=== PATIENT | female | born 1970 | race Caucasian/White ===

== ENCOUNTER 2023-08-27 06:29 | Outpatient (CLI) | payer BC, SELFPAY ==
[2023-08-27 07:06] VITALS: BP 167/86; PULSE 74; RESP 16; O2SAT 100
[2023-08-27 07:56] VITALS: BP 143/82; PULSE 67; RESP 16; O2SAT 100
== END 2023-08-27 08:04 | disposition home or self-care (01) ==
LOC: INJ CL 06:39 → US 06:46
PROVIDERS: Visit Provider Family Medicine
DX: M67.874 Other specified disorders of tendon, left ankle and foot (principal)
CPT/HCPCS: 27605; 76942; J0665